=== PATIENT | male | born 1985 ===

== ENCOUNTER 2018-05-16 18:10 | Emergency (ER) | payer SELFPAY ==
--- NOTE | 2018-05-16 18:41 | ED PDOC ---
Arrival/HPI - General Chief Complaint: Abnormal Skin Integrity Time Seen by Provider: 05/16/18 18:18 Historian: Patient - History of Present Illness Narrative History of Present Illness (Text): 05/16/18 18:37 32yr old male presents today with laceration to the web spacing between the 1st and 2nd fingers. pt states incident occurred 15 minutes prior to arrival. pt denies numbness, weakness or tingling in the extremity. pt denies limited rom of hand. pt denies fever/chills. pt states tetanus vaccine was 4 years ago. pt denies any other complaints. no medications have been taken at home. no other complaints. Past Medical History - Provider Review Nursing Documentation Reviewed: Yes - Travel History Have you recently traveled outside [place] w/in the past 3 mons?: No - Psychiatric Hx Psychophysiologic Disorder: No Hx Substance Use: No - Surgical History Hx Appendectomy: Yes Family/Social History - Physician Review Nursing Documentation Reviewed: Yes Family/Social History: Unknown Family HX Smoking Status: Heavy Smoker > 10 Cigarettes Daily Hx Alcohol Use: Yes Frequency of alcohol use: Socially Hx Substance Use: No Allergies/Home Meds Allergies/Adverse Reactions: Allergies No Known Allergies Allergy (Verified 05/16/18 18:16) Review of Systems - Review of Systems Constitutional: absent: Fatigue, Fevers Respiratory: absent: SOB, Cough Cardiovascular: absent: Chest Pain, Palpitations Gastrointestinal: absent: Abdominal Pain, Nausea, Vomiting Musculoskeletal: Arthralgias Skin: Laceration Neurological: absent: Headache, Dizziness Psychiatric: absent: Anxiety, Depression Physical Exam Vital Signs Reviewed: Yes Vital Signs Temp Pulse Resp BP Pulse Ox 05/16/18 18:55 98 F 78 19 119/53 L 100 05/16/18 18:16 98.6 F 67 17 117/76 96 Temperature: Afebrile Blood Pressure: Normal Pulse: Regular Respiratory Rate: Normal Appearance: Positive for: Well-Appearing, Non-Toxic, Comfortable Pain Distress: None Mental Status: Positive for: Alert and Oriented X 3 - Systems Exam Head: Present: Atraumatic Mouth: Present: Moist Mucous Membranes Neck: Present: Normal Range of Motion Respiratory/Chest: Present: Clear to Auscultation Cardiovascular: Present: Regular Rate and Rhythm Upper Extremity: Present: Normal ROM, NORMAL PULSES, Tenderness (left hand; there is a 4cm linear laceration noted to the webspecial between the 1st and 2nd fingers. no erythema, no edema. there is full rom of hand including full ROM of THUMB and 2nd digit. sensation is intact. cap refill is less than 2. no active bleeding. ), Neurovascularly Intact, Capillary Refill < 2s. No: Swelling , Erythema, Deformity Neurological: Present: GCS=15, Speech Normal Skin: Present: Warm, Dry, Normal Color Psychiatric: Present: Alert, Oriented x 3 Medical Decision Making ED Course and Treatment: 05/16/18 18:41 Patient is nontoxic well appearing in no distress. Vital signs are stable. Wound irrigated well with high pressure irrigation pt seen and evaluated by dr. lyon. full rom of hand, fingers, thumb. sensation and pulses in tact. Tetanus up to date tylenol po keflex po xray left hand; no fracture Laceration repair: 11 sutures placed. Bacitracin and dressing applied Patient was advised to keep the wound clean and dry, apply bacitracin twice daily. pt was advised to take keflex 4 times daily and return in 2 days for wound check. pt was advised to f/u with Hand specialist within the next 2 days. pt was advised to return in 10 days for suture removal. pt was advised to quit smoking. Advised immediate return if signs of infection develop or return if any other concerning symptoms develop Patient verbalizes understanding of discharge instructions and need for immediate followup. all aspects of this case were discussed the attending of record. Impression: Laceration, hand Motrin every 6 hours as needed for pain Keflex; one tablet 4 times daily x 7 days Keep the wound clean and dry, apply bacitracin twice daily Return in 10 days for suture removal Return immediately if signs of infection develop: High fevers, increasing pain, redness, swelling, purulent discharge Follow up with the hand specialist within the next 2 days. Followup with primary care physician within the next 2 days Return if any other concerning symptoms develop - RAD Interpretation Radiology Orders: 05/16/18 18:35 HAND LEFT 3 VIEWS ROUTINE [RAD] Stat - Medication Orders Current Medication Orders: Discontinued Medications Acetaminophen (Tylenol 325mg Tab) 650 mg PO STAT STA Stop: 05/16/18 18:38 Last Admin: 05/16/18 18:49 Dose: 650 mg MAR Pain/Vitals Document 05/16/18 18:49 GMI (Rec: 05/16/18 18:49 GMI [facility] [place] Pain Reassessment Is This A Pain ReAssessment? Yes Sleep Is patient sleeping during reassessment? No Presence of Pain Presence of Pain Yes Pain Scale Used Pain Scale Used Numeric Location Left, Right or Bilateral Left Upper or Lower Upper Pain Location Body Site Hand Description Constant Intensity 5 Scale Used Numeric Pain Behavior Facial Grimacing Alleviating Factors Medication Procedure: Wound Repair - Procedure Procedure: Wound Repair: hand laceration - Performed by Performed by: Mid-level Provider - Indications Indication(s):: Laceration - Location Location:: Left (left hand between web spacing of 1st and 2nd finger) Shape:: Linear, Other Dimensions Length cm: 4cm Depth:: Subcutaneous fascia - Anesthetic Technique Local/Regional Anesthetic:: Lidocaine 1% (6cc) - Wound Examination Wound Examination:: Other (no tendon injury, no nerve injury, no arterial injury ) - Debris Debris:: None - Irrigated Irrigated with ml of normal saline: copious amounts of NS using high pressure irrigation - Complexity Complexity:: Simple (one layer) - Wound repair method Sutures:: # (11), Size (4.0), Type (nylon), Technique (interrupted) - Complications Complications: none - Patient tolerated procedure Patient Tolerated Procedure:: Well Disposition/Present on Arrival - Present on Arrival Any Indicators Present on Arrival: No History of DVT/PE: No History of Uncontrolled Diabetes: No Urinary Catheter: No History of Decub. Ulcer: No History Surgical Site Infection Following: None - Disposition Have Diagnosis and Disposition been Completed?: Yes Diagnosis: Laceration of hand Disposition Time: 18:45 Patient Plan: Discharge Patient Problems: Current Active Problems Problem Status Onset Laceration of hand Acute Condition: GOOD Discharge Instructions (ExitCare): Laceration Repair With Stitches (DC) Additional Instructions: Motrin every 6 hours as needed for pain Keflex; one tablet 4 times daily x 7 days Keep the wound clean and dry, apply bacitracin twice daily Return in 10 days for suture removal Return immediately if signs of infection develop: High fevers, increasing pain, redness, swelling, purulent discharge Follow up with the hand specialist within the next 2 days. Followup with primary care physician within the next 2 days Return if any other concerning symptoms develop Prescriptions: Bacitracin OINT 1 applic TP BID #1 tube Cephalexin [Keflex] 500 mg PO QID #28 capsule Ibuprofen [Motrin] 600 mg PO Q6H PRN #20 tab PRN Reason: pain/fever reduction Referrals: Fan Gaitan MD [Staff Provider] - Follow up with primary Kenan Robledo MD [Staff Provider] - Follow up with primary [employer] [Outside] - Follow up with primary [facility] [Outside] - Follow up with primary Veronica Burks MD [Medical Doctor] - Follow up with primary Forms: [employer] (Brazilian), WORK NOTE
[2018-05-16 18:58] VITALS: RESP 19; TEMP 98; O2SAT 100
[2018-05-16] MEDS ORDERED: Lidocaine PF 2% (5 ml) Inj (For Cardiac Arrhy) ONE ×2 (19:10→19:11)
[2018-05-16] MEDS ORDERED: Lidocaine 1% 5ml Abboject ONE (19:11)
[2018-05-16 20:44] VITALS: BP 121/83; PULSE 75
--- NOTE | 2018-05-17 10:16 | RAD ---
PROCEDURE: Left Hand Radiographs. HISTORY: laceration to web spacing 1-2 digit with knife COMPARISON: None. FINDINGS: BONES: Normal. No fracture. JOINTS: Normal. No osteoarthritic changes. SOFT TISSUES: There is a soft tissue laceration between the thumb and 2nd digit. There is no foreign body or fracture OTHER FINDINGS: None. IMPRESSION: There is a soft tissue laceration between the thumb and 2nd digit. There is no foreign body or fracture
== END 2018-05-16 20:51 | disposition home or self-care (01) ==
LOC: ED 18:10
DX: S61.412A Laceration without foreign body of left hand, initial encounter (principal); W26.0XXA Contact with knife, initial encounter; Y92.9 Unspecified place or not applicable

== ENCOUNTER 2019-01-29 11:01 | Emergency (ER) | payer SELFPAY ==
[2019-01-29 11:04] VITALS: RESP 18; TEMP 98.2; BMI 25.0
[2019-01-29] MEDS ORDERED: Oxycodone/Acetaminophen 5/325 mg Tab PO STA (13:23)
--- NOTE | 2019-01-29 13:24 | ED PDOC ---
Arrival/HPI - General Chief Complaint: Back Pain Time Seen by Provider: 01/29/19 13:18 Historian: Patient - History of Present Illness Narrative History of Present Illness (Text): 01/29/19 13:20 33 y/o male, no significant pmh, nkda, c/o lower back pain x 3 days with no fall or trauma. Aching pain, started after heavy lifting at work, aggravated by movement, no numbness or tingling, no urinary incontinence or retention, no ni ght sweat, no rash, no dizziness, no change in vision, no diarrhea, non radiating pain, no fall or trauma, no other medical or psychological complaints. Past Medical History - Provider Review Nursing Documentation Reviewed: Yes - Psychiatric Hx Psychophysiologic Disorder: No Hx Substance Use: No - Surgical History Hx Appendectomy: Yes Family/Social History - Physician Review Nursing Documentation Reviewed: Yes Family/Social History: Unknown Family HX Smoking Status: Heavy Smoker > 10 Cigarettes Daily Hx Alcohol Use: Yes Hx Substance Use: No Allergies/Home Meds Allergies/Adverse Reactions: Allergies No Known Allergies Allergy (Verified 01/29/19 13:14) Review of Systems - Review of Systems Constitutional: absent: Fatigue, Fevers Eyes: absent: Vision Changes ENT: absent: Hearing Changes Respiratory: absent: SOB, Cough Cardiovascular: absent: Chest Pain Gastrointestinal: absent: Abdominal Pain, Nausea, Vomiting Musculoskeletal: Back Pain. absent: Arthralgias, Neck Pain, Joint Swelling Skin: absent: Rash, Pruritis, Skin Lesions Neurological: absent: Headache, Dizziness Psychiatric: absent: Anxiety, Depression, Suicidal Ideation Physical Exam Vital Signs Reviewed: Yes Vital Signs Temp Pulse Resp BP Pulse Ox 01/29/19 11:03 98.2 F 86 18 142/85 98 Temperature: Afebrile Blood Pressure: Normal Pulse: Regular Respiratory Rate: Normal Appearance: Positive for: Well-Appearing, Non-Toxic, Comfortable Pain Distress: Moderate Mental Status: Positive for: Alert and Oriented X 3 - Systems Exam Head: Present: Atraumatic, Normocephalic Pupils: Present: PERRL Extroacular Muscles: Present: EOMI Conjunctiva: Present: Normal Mouth: Present: Moist Mucous Membranes Neck: Present: Normal Range of Motion Respiratory/Chest: Present: Clear to Auscultation, Good Air Exchange. No: Respiratory Distress, Accessory Muscle Use Cardiovascular: Present: Regular Rate and Rhythm, Normal S1, S2. No: Murmurs Abdomen: No: Tenderness, Distention, Peritoneal Signs Back: Present: Normal Inspection, Paraspinal Tenderness (LS), Other (LS spine: +ttp on the rt. paraspinal muscle, no midline tenderness or step off, no cva tenderness, FROM without limitation, sensation intact, motor 5/5, SLR test negative). No: CVA Tenderness, Midline Tenderness, Pain with Leg Raise, Decubitus Ulcer Upper Extremity: Present: Normal Inspection. No: Cyanosis, Edema Lower Extremity: Present: Normal Inspection. No: Edema Neurological: Present: GCS=15, CN II-XII Intact, Speech Normal Skin: Present: Warm, Dry, Normal Color. No: Rashes Psychiatric: Present: Alert, Oriented x 3, Normal Insight, Normal Concentration Medical Decision Making ED Course and Treatment: 01/29/19 13:26 -Toradol IM/percocet -observe and reassess 01/29/19 14:38 -Pt. feels much better, pain resolved, walking with normal gait and posture, request to be discharged home. -Discharge home with motrin, flexeril, bed rest, heat compression, follow up with your own pmd and orthopedic within 2 days, return to the ER for any new or worsening signs or symptoms. 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 Disposition/Present on Arrival - Present on Arrival Any Indicators Present on Arrival: No History of DVT/PE: No History of Uncontrolled Diabetes: No Urinary Catheter: No History of Decub. Ulcer: No History Surgical Site Infection Following: None - Disposition Have Diagnosis and Disposition been Completed?: Yes Diagnosis: Low back sprain Disposition: HOME/ ROUTINE Disposition Time: 13:26 Patient Plan: Discharge Condition: IMPROVED Additional Instructions: -Discharge home with motrin, flexeril, bed rest, heat compression, follow up with your own pmd and orthopedic within 2 days, return to the ER for any new or worsening signs or symptoms. Prescriptions: Cyclobenzaprine [Cyclobenzaprine HCl] 10 mg PO TID PRN #21 tab PRN Reason: Other Ibuprofen [Motrin] 600 mg PO QID PRN #30 tab PRN Reason: Other Referrals: [facility] [place] - Follow up with primary Ismael Lopes MD [Staff Provider] - Follow up with primary Forms: [employer] (Croatian), WORK NOTE
[2019-01-29 13:39] VITALS: BP 130/80; PULSE 59; O2SAT 99
== END 2019-01-29 14:50 | disposition home or self-care (01) ==
LOC: ED 11:01
DX: S33.9XXA Sprain of unspecified parts of lumbar spine and pelvis, initial encounter (principal); X58.XXXA Exposure to other specified factors, initial encounter; F17.210 Nicotine dependence, cigarettes, uncomplicated
CPT/HCPCS: 96372; 99283; J1885